=== PATIENT | female | born 1990 | race Caucasian/White ===

== ENCOUNTER 2017-10-22 06:36 | Inpatient (IN) | payer MEDICAID ==
[~2017-10-22] VITALS: Ht 162.6 cm; Wt 91.0 kg
[2017-10-22 07:18] LABS: BASOPHILS % (AUTO) 0 % (0-1); EOSINOPHILS # (AUTO) 0.1 X10'3 (0-0.9); EOSINOPHILS % (AUTO) 0.8 % (0-6); HEMATOCRIT 43.3 % (35.0-45.0); HEMOGLOBIN 14.9 g/dl (12.0-16.0); LYMPHOCYTES # (AUTO) 0.9 X10'3 (1.1-4.8); LYMPHOCYTES % (AUTO) 5.7 % (21-51); MEAN CORPUSCULAR HEMOGLOBIN 31.8 PG (27.0-31.0); MEAN CORPUSCULAR HGB CONC 34.5 % (33.0-36.5); MEAN CORPUSCULAR VOLUME 92.2 FL (78-98); MEAN PLATELET VOLUME 9.8 FL (7.4-10.4); MONOCYTES # (AUTO) 1.6 X10'3 (0-0.9); MONOCYTES % (AUTO) 10.7 % (2-12); NEUTROPHILS # (AUTO) 12.7 X10'3 (1.8-7.7); NEUTROPHILS % (AUTO) 82.8 % (42-75); PLATELET COUNT 188 X10'3 (140-440); RED CELL DISTRIBUTION WIDTH 13.4 % (11.5-14.5); WHITE BLOOD COUNT 15.3 X10'3 (4.5-11.0)
[2017-10-22 07:26] LABS: INR 1.1 INR; PROTHROMBIN TIME 11.7 SECONDS (9.0-12.0)
[2017-10-22 07:36] LABS: COLOR,URINE YELLOW (Yellow); GLUCOSE, URINE NEGATIVE (Neg); KETONES,URINE NEGATIVE (Neg); LEUKOCYTE ESTERASE ,URINE MODERATE (Neg); NITRITES, URINE POSITIVE (Neg); OCCULT BLOOD,URINE LARGE (Neg); PROTEIN,URINE 100 mg/dl (Neg)
[2017-10-22 07:36] LABS: ALANINE AMINOTRANSFERASE 34 U/L (12-78); ALBUMIN 3.2 G/DL (3.4-5.0); ALBUMIN/GLOBULIN RATIO 0.7 (1.1-1.5); ALKALINE PHOSPHATASE 110 IU/L (46-116); AMYLASE 18 U/L (25-115); ANION GAP 11 (8-16); ASPARTATE AMINO TRANSFERASE 22 U/L (10-37); BILIRUBIN,TOTAL 1.1 MG/DL (0.1-1.0); BLOOD UREA NITROGEN 13 MG/DL (7-18); BUN/CREATININE RATIO 11.8 (6.6-38.0); CHLORIDE 101 MMOL/L (99-107); GLUCOSE 128 MG/DL (70-104); LIPASE 50 U/L (73-393); POTASSIUM 3.5 MMOL/L (3.5-5.1); SODIUM 140 MMOL/L (135-145); TOTAL CARBON DIOXIDE 28.5 MMOL/L (24-32); TOTAL PROTEIN 7.6 G/DL (6.4-8.2); eGFR 61 ML/MIN
[2017-10-22 07:39] LABS: CLARITY,URINE CLOUDY (Clear); UA COLLECTION TYPE CLN CATCH MIDSTREAM
[2017-10-22 07:42] LABS: WBC,URINE TNTC /HPF (0-4)
[2017-10-22 07:43] LABS: BACTERIA,URINE 3+ /HPF (Neg); URINE HCG NEGATIVE (NEG)
[2017-10-22 07:44] LABS: SQUAMOUS EPITHELIAL CELL,UR MODERATE /LPF (FEW)
[2017-10-22] MEDS ORDERED: ondansetron/PF 4mg/2ml inj IV ONE ×2 (07:50→09:15)
[2017-10-22] MEDS ORDERED: normal saline 1000ML IV soln IVB ONE (07:50)
[2017-10-22] MEDS ORDERED: normal saline 1000ml 1,000 ML IV ONE (07:50)
[2017-10-22] MEDS ORDERED: GABA-532 PO (08:06)
[2017-10-22] MEDS ORDERED: TOPI100T18 PO (08:06)
[2017-10-22] MEDS ORDERED: TRAM50TA2 PO (08:06)
[2017-10-22 08:07] LABS: TOTAL CELLS COUNTED 100
[2017-10-22 08:11] LABS: PLATELET ESTIMATE NORMAL
[2017-10-22] MEDS ORDERED: morphine 2 MG/ML inj. syringe IV ONE (08:20)
[2017-10-22] MEDS ORDERED: levoFLOXACIN-Levaquin 750MG/D5 150 ML IV ONE (08:20)
[2017-10-22] MEDS ORDERED: morphine 4 MG/ML inj SYRINge IV ONE (09:15)
[2017-10-22] MEDS ORDERED: magnesium hydroxide 30ml (MOM) UD suspension PO PRN (09:30)
[2017-10-22] MEDS ORDERED: mag hydrox/Alum hydrox/simeth 30ml oral suspension PO PRN (09:30)
[2017-10-22] MEDS ORDERED: acetaminophen 325mg tablet PO PRN (09:30)
[2017-10-22 11:00] VITALS: BP 114/70
[2017-10-22] MEDS: morphine 2 MG/ML inj. syringe IV PRN ×3 (12:56→19:13)
[2017-10-22] MEDS: dextrose 5%-1/2 normal saline 1,000 ML IV SCH ×2 (12:59→19:30)
[2017-10-22] MEDS: ondansetron/PF 4mg/2ml inj IV PRN ×2 (15:54→21:39)
[2017-10-22] MEDS: nicotine 14mg patch - 24hr TD SCH (17:20)
[2017-10-22 18:00] VITALS: BP 118/67
[2017-10-22] MEDS: topiramate 100mg tablet PO SCH (20:55)
[2017-10-22 22:00] VITALS: BP 111/63
[2017-10-22] MEDS: gabapentin 300mg capsule PO SCH (22:24)
[2017-10-23] MEDS: traMADol 50MG tablet PO PRN ×3 (02:41→10:18)
[2017-10-23 05:19] LABS: BASOPHILS % (AUTO) 0.1 % (0-1); EOSINOPHILS # (AUTO) 0.3 X10'3 (0-0.9); EOSINOPHILS % (AUTO) 2.2 % (0-6); HEMATOCRIT 38.9 % (35.0-45.0); HEMOGLOBIN 13.3 g/dl (12.0-16.0); LYMPHOCYTES # (AUTO) 1.6 X10'3 (1.1-4.8); LYMPHOCYTES % (AUTO) 11.9 % (21-51); MEAN CORPUSCULAR HEMOGLOBIN 31.9 PG (27.0-31.0); MEAN CORPUSCULAR HGB CONC 34.1 % (33.0-36.5); MEAN CORPUSCULAR VOLUME 93.5 FL (78-98); MEAN PLATELET VOLUME 10.1 FL (7.4-10.4); MONOCYTES # (AUTO) 1.7 X10'3 (0-0.9); MONOCYTES % (AUTO) 12.8 % (2-12); NEUTROPHILS # (AUTO) 9.9 X10'3 (1.8-7.7); PLATELET COUNT 168 X10'3 (140-440); RED BLOOD COUNT 4.16 X10'6 (4.20-5.60); RED CELL DISTRIBUTION WIDTH 13.9 % (11.5-14.5); WHITE BLOOD COUNT 13.5 X10'3 (4.5-11.0)
[2017-10-23] MEDS: dextrose 5%-1/2 normal saline 1,000 ML IV SCH (05:30)
[2017-10-23 06:00] VITALS: BP 116/71
[2017-10-23] MEDS: nicotine 14mg patch - 24hr TD SCH (08:00)
[2017-10-23] MEDS ORDERED: cefTRIAXone 1g/NS 100ml IVPB 100 ML IV ONE (08:00)
[2017-10-23] MEDS ORDERED: levoFLOXACIN-Levaquin 750MG/D5 150 ML IV SCH (08:00)
[2017-10-23] MEDS ORDERED: gabapentin 300mg capsule PO SCH (08:00)
[2017-10-23] MEDS: gabapentin 300mg capsule PO SCH (09:06)
[2017-10-23] MEDS: topiramate 100mg tablet PO SCH (09:06)
[2017-10-23 10:00] VITALS: BP 139/74
[2017-10-23] MEDS ORDERED: NICO-631 TD (11:21)
[2017-10-23] MEDS ORDERED: LEVO500T2 PO (11:22)
== END 2017-10-23 14:00 | disposition home or self-care (01) | DRG 463 ==
LOC: ER 06:37 → ED HOLD 09:30 → ORTHO 4S 10:58
PROVIDERS: ADMIT Internal Medicine; ATTEND Internal Medicine
DX: N12 Tubulo-interstitial nephritis, not specified as acute or chronic (principal); G40.909 Epilepsy, unspecified, not intractable, without status epilepticus; Z80.3 Family history of malignant neoplasm of breast; Z82.49 Family history of ischemic heart disease and other diseases of the circulatory system; M54.5 Low back pain; Z87.11 Personal history of peptic ulcer disease; Z79.899 Other long term (current) drug therapy; Z88.8 Allergy status to other drugs, medicaments and biological substances
CPT/HCPCS: 36415; 80053; 81001; 81025; 82150; 83605; 83690; 85025; 85610; 87040; 87070; 87077; 87088; 87186; 96361; 96365; 96375; 96376; 99285; J1956; J2270; J2405; J7030; J7042

== ENCOUNTER 2018-03-15 20:37 | Emergency (ER) | payer MEDICAID ==
[~2018-03-15] VITALS: Ht 162.6 cm; Wt 90.8 kg
[~2018-03-15 20:37] MED LIST: GABA-532 PO; NICO-631 TD; ONDA4TAB12 PO; TOPI100T18 PO; TRAM50TA2 PO
[2018-03-15] MEDS ORDERED: silver sulfadiazine cream 400gm jar TP SCH (21:30)
[2018-03-15] MEDS ORDERED: silver sulfadiazine cream 50gm TP ONE (22:00)
[2018-03-15 22:11] VITALS: BP 115/75
== END 2018-03-15 22:13 | disposition home or self-care (01) ==
LOC: ER 20:38
DX: T23.201A Burn of second degree of right hand, unspecified site, initial encounter (principal); T31.0 Burns involving less than 10% of body surface; F17.200 Nicotine dependence, unspecified, uncomplicated; Z88.8 Allergy status to other drugs, medicaments and biological substances; Z79.899 Other long term (current) drug therapy
CPT/HCPCS: 16000; 99284

== ENCOUNTER 2019-01-20 17:31 | Emergency (ER) | payer MEDICAID ==
[~2019-01-20] VITALS: Ht 162.6 cm; Wt 87.1 kg
[~2019-01-20 17:31] MED LIST changes: +AMOX500C2 PO; +HYDR-3965 PO; +NYST1000 PO; +TOP100T PO; -TOPI100T18 PO
[2019-01-20] MEDS ORDERED: ketorolac trometh inj. 60 MG/2 ML VIAL IM ONE (20:15)
[2019-01-20] MEDS ORDERED: clindamycin 150mg capsule PO ONE (20:15)
[2019-01-20] MEDS ORDERED: LIDOcaine Viscous 15ml cup MM ONE (20:20)
[2019-01-20] MEDS ORDERED: CLIN150C2 PO (20:30)
[2019-01-20] MEDS ORDERED: TRAM50TA2 PO (20:30)
[2019-01-20 21:21] VITALS: BP 114/75
== END 2019-01-20 21:20 | disposition home or self-care (01) ==
LOC: ER 17:32
DX: K02.9 Dental caries, unspecified (principal); J02.9 Acute pharyngitis, unspecified; R50.9 Fever, unspecified; K13.79 Other lesions of oral mucosa; K08.409 Partial loss of teeth, unspecified cause, unspecified class; F17.200 Nicotine dependence, unspecified, uncomplicated; Z79.2 Long term (current) use of antibiotics; Z79.899 Other long term (current) drug therapy; Z88.1 Allergy status to other antibiotic agents
CPT/HCPCS: 96372; 99283; J1885

== ENCOUNTER 2019-03-10 19:19 | Emergency (ER) | payer MEDICAID ==
[~2019-03-10] VITALS: Ht 162.6 cm; Wt 73.3 kg
[~2019-03-10 19:19] MED LIST changes: -AMOX500C2 PO; -HYDR-3965 PO; -NYST1000 PO
[2019-03-10] MEDS ORDERED: morphine 4 MG/ML inj SYRINge IV PRN ×2 (19:55→20:50)
[2019-03-10] MEDS ORDERED: pantoprazole IV 80 MG in normal saline 100ml IV soln 100 ML IV ONE (19:55)
[2019-03-10] MEDS ORDERED: ondansetron/PF 4mg/2ml inj IV ONE (19:55)
[2019-03-10] MEDS ORDERED: normal saline 1000ML IV soln IV ONE (19:55)
[2019-03-10] MEDS ORDERED: ESOMEPRAZOLE 40 MG VIAL IV ONE (20:00)
[2019-03-10 20:14] LABS: ALANINE AMINOTRANSFERASE 19 U/L (12-78); ALBUMIN 4.3 G/DL (3.4-5.0); ALBUMIN/GLOBULIN RATIO 1.2 (1.1-1.5); ALKALINE PHOSPHATASE 84 IU/L (46-116); ANION GAP 9 (8-16); ASPARTATE AMINO TRANSFERASE 15 U/L (10-37); BILIRUBIN,TOTAL 0.6 MG/DL (0.1-1.0); BLOOD UREA NITROGEN 18 MG/DL (7-18); BUN/CREATININE RATIO 20.5 (6.6-38.0); CALCIUM 9.6 MG/DL (8.5-10.1); CHLORIDE 105 MMOL/L (99-107); CREATININE 0.88 MG/DL (0.40-0.90); GLUCOSE 87 MG/DL (70-104); POTASSIUM 3.6 MMOL/L (3.5-5.1); SODIUM 140 MMOL/L (135-145); TOTAL CARBON DIOXIDE 25.6 MMOL/L (24-32); TOTAL PROTEIN 7.8 G/DL (6.4-8.2); eGFR 78 ML/MIN
[2019-03-10 20:16] LABS: BASOPHILS % (AUTO) 0.5 % (0-1); EOSINOPHILS # (AUTO) 0.3 X10'3 (0-0.9); HEMATOCRIT 49.5 % (35.0-45.0); HEMOGLOBIN 16.7 g/dl (12.0-16.0); LYMPHOCYTES # (AUTO) 3.1 X10'3 (1.1-4.8); LYMPHOCYTES % (AUTO) 30.2 % (21-51); MEAN CORPUSCULAR HEMOGLOBIN 33.7 PG (27.0-31.0); MEAN CORPUSCULAR HGB CONC 33.7 g/dL (33.0-36.5); MEAN PLATELET VOLUME 9.9 FL (7.4-10.4); MONOCYTES # (AUTO) 0.9 X10'3 (0-0.9); NEUTROPHILS # (AUTO) 5.8 X10'3 (1.8-7.7); NEUTROPHILS % (AUTO) 57.3 % (42-75); PLATELET COUNT 267 X10'3 (140-440); RED BLOOD COUNT 4.95 X10'6 (4.20-5.60); RED CELL DISTRIBUTION WIDTH 13.7 % (11.5-14.5); WHITE BLOOD COUNT 10.1 X10'3 (4.5-11.0)
[2019-03-10] MEDS ORDERED: PANT40SU2 PO (20:52)
[2019-03-10 21:06] LABS: URINE HCG NEGATIVE (NEG)
[2019-03-10 21:21] LABS: CLARITY,URINE CLEAR (Clear); COLOR,URINE YELLOW (Yellow); GLUCOSE, URINE NEGATIVE (Neg); KETONES,URINE NEGATIVE (Neg); LEUKOCYTE ESTERASE ,URINE NEGATIVE (Neg); NITRITES, URINE NEGATIVE (Neg); OCCULT BLOOD,URINE LARGE (Neg); PROTEIN,URINE NEGATIVE (Neg); UA COLLECTION TYPE STRAIGHT CATH; UROBILINOGEN,URINE 0.2 E.U/dL (0.2-1.0)
[2019-03-10 21:33] VITALS: BP 119/89
[2019-03-10 21:47] LABS: BACTERIA,URINE NONE SEEN /HPF (Neg); MUCUS STRANDS MANY /LPF (Neg); SQUAMOUS EPITHELIAL CELL,UR MODERATE /LPF (FEW); WBC,URINE 0-4 /HPF (0-4)
[2019-03-11] MEDS ORDERED: SUCR1ORA PO (20:26)
[2019-03-11] MEDS ORDERED: DICY10CA88 PO (20:26)
== END 2019-03-10 21:33 | disposition home or self-care (01) ==
LOC: ER 19:20
DX: R10.13 Epigastric pain (principal); R11.2 Nausea with vomiting, unspecified; F10.99 Alcohol use, unspecified with unspecified alcohol-induced disorder; G89.29 Other chronic pain; M79.7 Fibromyalgia; F17.200 Nicotine dependence, unspecified, uncomplicated; Z88.1 Allergy status to other antibiotic agents; Z79.899 Other long term (current) drug therapy; Z86.69 Personal history of other diseases of the nervous system and sense organs; Y90.9 Presence of alcohol in blood, level not specified
CPT/HCPCS: 36415; 71045; 80053; 81001; 81025; 85025; 85610; 86885; 86900; 86901; 93005; 96361; 96374; 96375; 96376; 99284; J2270; J2405; J7030; C9113

== ENCOUNTER 2019-03-11 17:57 | Emergency (ER) | payer MEDICAID ==
[~2019-03-11] VITALS: Ht 162.6 cm; Wt 83.0 kg
[~2019-03-11 17:57] MED LIST changes: +PANT40SU2 PO
[2019-03-11] MEDS ORDERED: diphenhydrAMINE 50 mg/ml inj IV ONE (18:25)
[2019-03-11] MEDS ORDERED: normal saline 1000ML IV soln IVB ONE (18:25)
[2019-03-11] MEDS ORDERED: morphine 4 MG/ML inj SYRINge IV ONE (18:25)
[2019-03-11] MEDS ORDERED: dicyclomine 10 MG capsule PO ONE (18:25)
[2019-03-11] MEDS ORDERED: metoclopramide 5 mg/ml inj IV ONE (18:25)
[2019-03-11 19:03] LABS: BASOPHILS % (AUTO) 0.6 % (0-1); EOSINOPHILS # (AUTO) 0.4 X10'3 (0-0.9); EOSINOPHILS % (AUTO) 4.4 % (0-6); HEMATOCRIT 45.4 % (35.0-45.0); HEMOGLOBIN 15.2 g/dl (12.0-16.0); LYMPHOCYTES # (AUTO) 3.2 X10'3 (1.1-4.8); LYMPHOCYTES % (AUTO) 37.5 % (21-51); MEAN CORPUSCULAR HEMOGLOBIN 33.4 PG (27.0-31.0); MEAN CORPUSCULAR HGB CONC 33.4 g/dL (33.0-36.5); MEAN CORPUSCULAR VOLUME 99.9 FL (78-98); MEAN PLATELET VOLUME 9.7 FL (7.4-10.4); MONOCYTES # (AUTO) 0.9 X10'3 (0-0.9); MONOCYTES % (AUTO) 10.1 % (2-12); NEUTROPHILS # (AUTO) 4.1 X10'3 (1.8-7.7); NEUTROPHILS % (AUTO) 47.4 % (42-75); PLATELET COUNT 241 X10'3 (140-440); RED BLOOD COUNT 4.55 X10'6 (4.20-5.60); RED CELL DISTRIBUTION WIDTH 13.5 % (11.5-14.5); WHITE BLOOD COUNT 8.6 X10'3 (4.5-11.0)
[2019-03-11 19:14] LABS: ALANINE AMINOTRANSFERASE 21 U/L (12-78); ALBUMIN 4.1 G/DL (3.4-5.0); ALBUMIN/GLOBULIN RATIO 1.3 (1.1-1.5); ALKALINE PHOSPHATASE 80 IU/L (46-116); ANION GAP 12 (8-16); ASPARTATE AMINO TRANSFERASE 11 U/L (10-37); BILIRUBIN,TOTAL 0.4 MG/DL (0.1-1.0); BLOOD UREA NITROGEN 17 MG/DL (7-18); BUN/CREATININE RATIO 21.3 (6.6-38.0); CALCIUM 8.7 MG/DL (8.5-10.1); CHLORIDE 104 MMOL/L (99-107); GLUCOSE 87 MG/DL (70-104); POTASSIUM 3.7 MMOL/L (3.5-5.1); SODIUM 140 MMOL/L (135-145); TOTAL CARBON DIOXIDE 23.9 MMOL/L (24-32); TOTAL PROTEIN 7.2 G/DL (6.4-8.2); eGFR 87 ML/MIN
[2019-03-11] MEDS ORDERED: DICY10CA88 PO (20:26)
[2019-03-11] MEDS ORDERED: SUCR1ORA PO (20:26)
[2019-03-11] MEDS ORDERED: traMADol 50MG tablet PO ONE (20:30)
[2019-03-11 20:38] VITALS: BP 120/68
== END 2019-03-11 20:39 | disposition home or self-care (01) ==
LOC: ER 17:58
DX: R10.13 Epigastric pain (principal); R10.11 Right upper quadrant pain; R11.2 Nausea with vomiting, unspecified; R19.7 Diarrhea, unspecified; R50.9 Fever, unspecified; F17.200 Nicotine dependence, unspecified, uncomplicated; F10.99 Alcohol use, unspecified with unspecified alcohol-induced disorder; Z86.69 Personal history of other diseases of the nervous system and sense organs; Z88.1 Allergy status to other antibiotic agents; Z79.899 Other long term (current) drug therapy; Y90.9 Presence of alcohol in blood, level not specified
CPT/HCPCS: 36415; 80053; 85025; 96361; 96374; 96375; 99284; J1200; J2270; J2765; J7030; 99283

== ENCOUNTER 2019-03-22 20:58 | Emergency (ER) | payer MEDICAID ==
[~2019-03-22] VITALS: Ht 162.6 cm; Wt 82.0 kg
[~2019-03-22 20:58] MED LIST changes: +DICY10CA88 PO; +SUCR1ORA PO
[2019-03-22 21:35] LABS: URINE HCG NEGATIVE (NEG)
[2019-03-22 21:36] LABS: CLARITY,URINE CLOUDY (Clear); COLOR,URINE YELLOW (Yellow); GLUCOSE, URINE NEGATIVE (Neg); KETONES,URINE NEGATIVE (Neg); LEUKOCYTE ESTERASE ,URINE NEGATIVE (Neg); NITRITES, URINE NEGATIVE (Neg); OCCULT BLOOD,URINE LARGE (Neg); PH,URINE 6.5 (4.8-8.0); PROTEIN,URINE NEGATIVE (Neg); UROBILINOGEN,URINE 0.2 E.U/dL (0.2-1.0)
[2019-03-22 21:36] LABS: BASOPHILS # (AUTO) 0.1 X10'3 (0-0.2); BASOPHILS % (AUTO) 1.3 % (0-1); EOSINOPHILS # (AUTO) 0.5 X10'3 (0-0.9); EOSINOPHILS % (AUTO) 5.2 % (0-6); HEMOGLOBIN 14.6 g/dl (12.0-16.0); LYMPHOCYTES # (AUTO) 3.6 X10'3 (1.1-4.8); LYMPHOCYTES % (AUTO) 39.6 % (21-51); MEAN CORPUSCULAR HEMOGLOBIN 33.5 PG (27.0-31.0); MEAN CORPUSCULAR HGB CONC 33.9 g/dL (33.0-36.5); MEAN CORPUSCULAR VOLUME 98.8 FL (78-98); MEAN PLATELET VOLUME 9.8 FL (7.4-10.4); MONOCYTES # (AUTO) 0.9 X10'3 (0-0.9); NEUTROPHILS % (AUTO) 43.9 % (42-75); PLATELET COUNT 263 X10'3 (140-440); RED BLOOD COUNT 4.35 X10'6 (4.20-5.60); RED CELL DISTRIBUTION WIDTH 12.8 % (11.5-14.5); WHITE BLOOD COUNT 9.1 X10'3 (4.5-11.0)
[2019-03-22 21:43] LABS: UA COLLECTION TYPE VOIDED
[2019-03-22 21:44] LABS: BACTERIA,URINE FEW /HPF (Neg); RBC,URINE TNTC /HPF (0-2); SQUAMOUS EPITHELIAL CELL,UR MODERATE /LPF (FEW); WBC,URINE 0-4 /HPF (0-4)
[2019-03-22 21:50] LABS: GLUCOSE 87 MG/DL (70-104); SODIUM 142 MMOL/L (135-145)
[2019-03-22 21:51] LABS: ALANINE AMINOTRANSFERASE 23 U/L (12-78); ALBUMIN 3.8 G/DL (3.4-5.0); ALBUMIN/GLOBULIN RATIO 1.2 (1.1-1.5); ALKALINE PHOSPHATASE 88 IU/L (46-116); ANION GAP 9 (8-16); ASPARTATE AMINO TRANSFERASE 11 U/L (10-37); BILIRUBIN,TOTAL 0.4 MG/DL (0.1-1.0); BLOOD UREA NITROGEN 11 MG/DL (7-18); BUN/CREATININE RATIO 11.2 (6.6-38.0); CALCIUM 9.1 MG/DL (8.5-10.1); CHLORIDE 106 MMOL/L (99-107); CREATININE 0.98 MG/DL (0.40-0.90); LIPASE 109 U/L (73-393); TOTAL CARBON DIOXIDE 26.9 MMOL/L (24-32); TOTAL PROTEIN 7.1 G/DL (6.4-8.2); eGFR 69 ML/MIN
[2019-03-23] MEDS ORDERED: HYDROcodone/acetaminophen 10/325mg tab PO ONE (00:20)
[2019-03-23] MEDS ORDERED: ACET-2119 PO (00:22)
[2019-03-23] MEDS ORDERED: PANT-47 PO (00:22)
[2019-03-23] MEDS ORDERED: pantoprazole 40mg Tablet.DR PO ONE (00:35)
[2019-03-23 00:47] VITALS: BP 105/79
[2019-03-23] MEDS ORDERED: pantoprazole 40mg Tablet.DR PO SCH (07:30)
== END 2019-03-23 00:51 | disposition home or self-care (01) ==
LOC: ER 20:59
DX: R10.13 Epigastric pain (principal); R10.11 Right upper quadrant pain; K92.0 Hematemesis; F10.99 Alcohol use, unspecified with unspecified alcohol-induced disorder; Z86.69 Personal history of other diseases of the nervous system and sense organs; Z98.890 Other specified postprocedural states; Z88.1 Allergy status to other antibiotic agents; Z79.899 Other long term (current) drug therapy; Y90.9 Presence of alcohol in blood, level not specified
CPT/HCPCS: 36415; 80053; 81001; 81025; 83690; 85025; 85610; 99283

== ENCOUNTER 2019-04-28 16:55 | Emergency (ER) | payer MEDICAID ==
[~2019-04-28] VITALS: Ht 162.6 cm; Wt 85.5 kg
[~2019-04-28 16:55] MED LIST changes: +PANT-47 PO
[2019-04-28 17:32] VITALS: BP 105/73
[2019-04-28] MEDS ORDERED: HYDROcodone/acetaminophen 5mg/325mg tablet PO ONE (17:40)
[2019-04-28] MEDS ORDERED: DICL100G15 TOP (18:32)
== END 2019-04-28 18:39 | disposition home or self-care (01) ==
LOC: ER 16:55
DX: M25.532 Pain in left wrist (principal); F10.99 Alcohol use, unspecified with unspecified alcohol-induced disorder; Z98.890 Other specified postprocedural states; Z88.1 Allergy status to other antibiotic agents; Z79.899 Other long term (current) drug therapy; X50.1XXA Overexertion from prolonged static or awkward postures, initial encounter; Y93.89 Activity, other specified; Y92.89 Other specified places as the place of occurrence of the external cause; Y99.8 Other external cause status; Y90.9 Presence of alcohol in blood, level not specified
CPT/HCPCS: 29125; 73110; 99283

== ENCOUNTER 2019-05-01 17:24 | Emergency (ER) | payer MEDICAID ==
[~2019-05-01] VITALS: Ht 162.6 cm; Wt 85.5 kg
[~2019-05-01 17:24] MED LIST changes: +DICL100G15 TOP
[2019-05-01 17:32] VITALS: BP 143/76
[2019-05-01] MEDS ORDERED: ACET-3068 PO (18:48)
== END 2019-05-01 19:30 | disposition home or self-care (01) ==
LOC: ER 17:25
DX: M25.532 Pain in left wrist (principal); F10.99 Alcohol use, unspecified with unspecified alcohol-induced disorder; Z98.890 Other specified postprocedural states; Z86.69 Personal history of other diseases of the nervous system and sense organs; Z79.899 Other long term (current) drug therapy; Z88.1 Allergy status to other antibiotic agents; W18.39XA Other fall on same level, initial encounter; Y93.89 Activity, other specified; Y92.89 Other specified places as the place of occurrence of the external cause; Y99.8 Other external cause status; Y90.9 Presence of alcohol in blood, level not specified
CPT/HCPCS: 29125; 99283

== ENCOUNTER 2019-05-03 20:00 | Emergency (ER) | payer MEDICAID ==
[~2019-05-03] VITALS: Ht 162.6 cm; Wt 85.5 kg
[~2019-05-03 20:00] MED LIST changes: +ACET-3068 PO
[2019-05-03 20:10] VITALS: BP 138/72
[2019-05-03] MEDS ORDERED: HYDROcodone/acetaminophen 5mg/325mg tablet PO ONE (21:50)
[2019-05-03] MEDS ORDERED: HYDR-3965 PO (21:53)
== END 2019-05-03 23:02 | disposition home or self-care (01) ==
LOC: ER 20:02
DX: M25.532 Pain in left wrist (principal); Z98.890 Other specified postprocedural states; Z88.1 Allergy status to other antibiotic agents; Z88.6 Allergy status to analgesic agent; Z79.899 Other long term (current) drug therapy
CPT/HCPCS: 29125; 99283